=== PATIENT | female | born 2000 | race Two or more races ===

== ENCOUNTER 2025-08-23 09:27 | Outpatient (CLI) | payer BC, SELFPAY | END 2025-08-23 09:28 | disposition home or self-care (01) | LOC: NFLDREF 08-28 07:50 | PROVIDERS: PCP Family Medicine; Visit Provider Family Medicine | DX: Z13.1 Encounter for screening for diabetes mellitus (principal); Z13.6 Encounter for screening for cardiovascular disorders | CPT/HCPCS: 80061; 82947 ==

== ENCOUNTER 2025-09-24 16:09 | Outpatient (CLI) | payer BC, SELFPAY ==
[2025-10-01 16:58] LABS: HPV Source Cervical
[2025-10-04 12:01] LABS: Pap Test Screened Manually Done
== END 2025-09-24 16:10 | disposition home or self-care (01) ==
PROVIDERS: PCP Family Medicine; Visit Provider Advanced Practice Midwife
DX: Z12.4 Encounter for screening for malignant neoplasm of cervix (principal)
CPT/HCPCS: 87624; 87625; 88141; 88142; 88175